=== PATIENT | female | born 1945 | race Caucasian/White ===

== ENCOUNTER 2019-05-06 18:33 | Emergency (ER) | payer OTHER ==
[~2019-05-06] VITALS: Ht 152.4 cm; Wt 65.3 kg
[~2019-05-06 18:33] MED LIST: COREG CR10 MG PO; LOSARTAN-HCTZ1 EAC2; NABUMETONE500 MG PO; PERCOCET 5/3251 TAB PO; PRAVACHOL10 MG; PROLEA IM; SYNTHROID75 MCG
== END 2019-05-06 22:24 | disposition home or self-care (01) ==
LOC: ER 18:33
DX: R51 Headache (principal)